=== PATIENT | female | born 1970 | race African-American/Black ===

== ENCOUNTER 2017-01-16 17:09 | Emergency (ER) | payer OTHER ==
[~2017-01-16] VITALS: Ht 177.8 cm; Wt 72.0 kg
[~2017-01-16 17:09] MED LIST: TRAM50TA3
[2017-01-16 17:16] VITALS: BP 164/100
== END 2017-01-16 20:04 | disposition left against medical advice (07) ==
LOC: ER 17:34
DX: M54.9 Dorsalgia, unspecified (principal); Z53.21 Procedure and treatment not carried out due to patient leaving prior to being seen by health care provider